=== PATIENT | male | born 1955 | race Caucasian/White ===

== ENCOUNTER 2020-08-19 16:07 | Outpatient (CLI) | payer MEDICARE, SELFPAY ==
[2020-08-21 00:53] LABS: SARS-CoV-2 RNA PCR Positive
== END 2020-08-19 16:08 | disposition home or self-care (01) ==
PROVIDERS: PCP Family Medicine; Visit Provider Family Medicine
DX: U07.1 COVID-19 (principal)
CPT/HCPCS: 87635; C9803; U0003

== ENCOUNTER 2023-10-09 09:22 | Outpatient (RCR) | payer MEDICARE, SELFPAY ==
--- NOTE | 2023-10-09 10:31 | OPREHPOC ---
Outpatient Therapy Plan of Care This is a Multidisciplinary Plan of Care that may contain components documented by all disciplines (PT, OT, and ST.) PT Problem 1 PT Problem #1 Knowledge Deficit PT Goal 1 Goal The patient will be independent in a home exercise program to continue after discharge from skilled PT. Target Visit 16 PT Problem 2 PT Problem #2 Pain PT Goal 1 Goal The patient will report no greater than 1/10 right Achilles pain with walking community distances. Target Visit 16 PT Problem 3 PT Problem #3 Impaired Gait PT Goal 1 Goal The patient will demonstrate 5 degrees of right ankle dorsiflexion in order to normalize gait. Target Visit 16 PT Problem 4 PT Problem #4 Impaired Gait PT Goal 1 Goal The patient will demonstrate 30% or less self perceived disability per the LEFS. Target Visit 16 PT Problem 5 PT Problem #5 Impaired Wheelchair Mobil PT Goal 1 Goal The patient will demonstrate the ability to perform 10 right single heel raises indicating improved strength in the right ankle plantarflexors. Target Visit 16
--- NOTE | 2023-10-09 10:32 | PTOPEVAL1 ---
Assessment and note entered by Jennifer Sy, PT Evaluation Information Assessment Status Evaluation Diagnosis R partial Achilles tear Subjective Information Emerson Gaytan reports he injured his right Achilles tendon in December 2022 when he was playing basketball with his grandson and pushed off his right foot. He felt some pain in the tendon and worsened after going to [place] the next week and walking around 10 miles every day. He has continued to have pain in the right Achilles especially when he walks and pushes off the right foot so he went to the doctor and had a MRI. The MRI showed a partial tear in the right Achilles tendon. He notes pain is only present when pushing off with the right foot and when he has pressure on the tendon when he sits in his recliner. Reported Pain Level Pain Score 0: Self Report Assessment PT Clinical Summary Emerson Gaytan presents with a partial right Achilles tendon tear that occurred in December 2022 when he forcefully pushed off with his right foot while playing basketball. He has difficulty with walking and having pressure on the tendon. He objectively demonstrates decreased right gastrocnmemius and soleus flexibility, decreased right plantarflexion strength, and altered gait. He will benefit from skilled PT to address these limitations. Plan of Care Interventions Electrical Stimulation,Gait Training,Hot Pack/Cold Pack,Intermittent Compression,Manual Therapy, Neuro Re-education,Patient/Caregiver Educati, Therapeutic Activities,Therapeutic Exercise PT Services Indicated Yes Treatment Frequency and 2 times a week for 16 visits Duration These treatments will address the objective and functional deficits as defined above. The patient will be advanced safely and appropriately in order for the patient to progress towards his/her prior level of function. Additional exercises will be introduced and as well as a comprehensive home exercise program upon discharge, if needed, ?to ensure carryover of functional gains achieved in the clinic. This treatment plan has been reviewed and agreement upon by the patient.
--- NOTE | 2023-11-11 14:47 | OPREHPOC ---
Outpatient Therapy Plan of Care This is a Multidisciplinary Plan of Care that may contain components documented by all disciplines (PT, OT, and ST.) PT Problem 1 PT Problem #1 Knowledge Deficit PT Goal 1 Goal The patient will be independent in a home exercise program to continue after discharge from skilled PT. Target Visit 16 Progress Partially Met Comment -progressing towards, continue PT Problem 2 PT Problem #2 Pain PT Goal 1 Goal The patient will report no greater than 1/10 right Achilles pain with walking community distances. Target Visit 16 Progress Partially Met Comment -progressing towards, continue PT Problem 3 PT Problem #3 Impaired Gait PT Goal 1 Goal The patient will demonstrate 5 degrees of right ankle dorsiflexion in order to normalize gait. Target Visit 16 Progress Met PT Problem 4 PT Problem #4 Impaired Gait PT Goal 1 Goal The patient will demonstrate 30% or less self perceived disability per the LEFS. Target Visit 16 Progress Partially Met Comment -progressing towards, continue PT Problem 5 PT Problem #5 Impaired Wheelchair Mobil PT Goal 1 Goal The patient will demonstrate the ability to perform 10 right single heel raises indicating improved strength in the right ankle plantarflexors. Target Visit 16 Progress Partially Met Comment -progressing towards, continue
--- NOTE | 2023-11-11 14:47 | PTOPPROG ---
Assessment and note entered by Jennifer Sy, PT Evaluation Information Assessment Status Progress Diagnosis R partial Achilles tear Onset 10/10/23 Subjective Information Emerson Gaytan reports his right Achilles still gets occasional soreness in it when his shoe rubs it or occasionally with walking but he does not feel like he limps anymore. He does note improving strength as well but still feels a little weak. He also notes tightness in the both calf muscles. He will be going out of town for 2-3 weeks to visit his children. Assessment PT Clinical Summary Emerson Gaytan has completed 10 skilled PT visits following a partial R Achilles tendon tear. He is reporting less pain and resolved limping. He still has difficulty with stretching the right ankle/calf and with forceful pushing off on the right foot. He demonstrates improved right ankle AROM, improved right gastrocnemius and soleus flexibility, improved right ankle strength, and improved gait. He does still have tenderness along the thickened area of the right Achilles tendon, decreased right gastrocnemius and soleus strength, and decreased right LE balance. He will continue to benefit from skilled PT to further address these limitations and return him to his PLOF. Plan of Care Interventions Gait Training,Manual Therapy,Neuro Re-education, Patient/Caregiver Educati,Therapeutic Activities, Therapeutic Exercise,Ultrasound PT Services Indicated Yes Treatment Frequency and Continue skilled PT 2 times a week for 6 Duration additional visits. These treatments will address the objective and functional deficits as defined above. The patient will be advanced safely and appropriately in order for the patient to progress towards his/her prior level of function. Additional exercises will be introduced and as well as a comprehensive home exercise program upon discharge, if needed, ?to ensure carryover of functional gains achieved in the clinic. This treatment plan has been reviewed and agreement upon by the patient.
--- NOTE | 2024-01-15 10:58 | PCPTNOTE ---
01/15/24: Pt went out of town for 2 weeks after last PT session on 11/13/23. He has not returned to PT since. He is discharged. -Jennifer Sy, PT
== END 2023-11-13 20:00 | disposition home or self-care (01) ==
LOC: CHSPT 09:22
PROVIDERS: PCP Family Medicine
DX: S86.011D Strain of right Achilles tendon, subsequent encounter (principal)
CPT/HCPCS: 97035; 97110; 97140; 97161